=== PATIENT | female | born 2005 | race Two or more races ===

== ENCOUNTER → 2024-04-24 | Outpatient (REF) | payer OTHER ==
[2024-04-24 14:37] LABS: Trichomonas vaginalis (AMP) NOT DETECTED (NEGATIVE)
[2024-04-24 15:00] LABS: GC DNA AMPLIFICATION NEGATIVE (NEGATIVE)
== END ==
LOC: M SFHCWAGY 12:44
PROVIDERS: ATTEND Obstetrics & Gynecology
DX: Z34.01 Encounter for supervision of normal first pregnancy, first trimester (principal)

== ENCOUNTER → 2024-06-05 | Outpatient (CLI) | payer OTHER ==
[2024-06-05 13:37] LABS: HEMATOCRIT 34.4 % (36.0-47.0); HEMOGLOBIN 11.9 g/dl (12.0-15.5); MEAN CORPUSCULAR HEMOGLOBIN 29.9 pg (27.0-33.0); MEAN CORPUSCULAR HGB CONC 34.6 g/dl (32.0-36.5); MEAN CORPUSCULAR VOLUME 86.4 fl (80.0-96.0); PLATELET COUNT, AUTOMATED 263 10^3/uL (150-450); RED BLOOD COUNT 3.98 10^6/uL (4.00-5.40); WHITE BLOOD COUNT 7.9 10^3/uL (4.0-10.0)
[2024-06-05 14:21] LABS: HEPATITIS B SURFACE ANTIGEN NEGATIVE (NEGATIVE)
[2024-06-05 14:34] LABS: HIV 1&2 SCREEN NEGATIVE (NEGATIVE)
[2024-06-05 14:42] LABS: HEPATITIS C VIRUS ABY INDEX 0.03 INDEX (<0.8)
== END ==
LOC: M PLALAB 09:54
PROVIDERS: ATTEND Obstetrics & Gynecology
DX: Z34.01 Encounter for supervision of normal first pregnancy, first trimester (principal)

== ENCOUNTER → 2024-11-21 | Outpatient (CLI) | payer OTHER ==
[2024-11-21 15:50] LABS: PLATELET COUNT, AUTOMATED 306 10^3/uL (150-450)
[2024-11-21 16:41] LABS: Trichomonas vaginalis (AMP) NOT DETECTED (NEGATIVE)
[2024-11-21 17:04] LABS: HEPATITIS C VIRUS ABY INDEX < 0.02 INDEX (<0.8); HIV 1&2 SCREEN NEGATIVE (NEGATIVE)
[2024-11-21 17:05] LABS: GC DNA AMPLIFICATION NEGATIVE (NEGATIVE)
== END ==
LOC: M PLALAB 14:25
PROVIDERS: ATTEND Nurse Practitioner Family
DX: Z34.03 Encounter for supervision of normal first pregnancy, third trimester (principal); Z3A.00 Weeks of gestation of pregnancy not specified
CPT/HCPCS: 36415; 85027; 86780; 86803; 86850; 86900; 86901; 87081; 87389; 87661; 87810; 87850; J2790

== ENCOUNTER 2024-11-22 18:12 | Emergency (ER) | payer OTHER ==
[~2024-11-22] VITALS: Ht 170.2 cm; Wt 79.5 kg
[2024-11-22 20:00] VITALS: BP 142/79; TEMP 98.2; O2SAT 96
[2024-11-22 20:40] LABS: APPEARANCE, URINE CLOUDY (CLEAR); BACTERIA, URINE AUTO NEGATIVE (NEGATIVE); BILIRUBIN, URINE AUTO NEGATIVE (NEGATIVE); BLOOD, URINE BLOOD NEGATIVE (NEGATIVE); GLUCOSE, URINE (UA) AUTO NEGATIVE (NEGATIVE); KETONE, URINE AUTO TRACE mg/dL (NEGATIVE); LEUKOCYTE ESTERASE, URINE AUTO NEGATIVE (NEGATIVE); MUCUS, URINE LARGE (NEGATIVE); NITRITE, URINE AUTO NEGATIVE (NEGATIVE); PROTEIN, URINE AUTO 3+ mg/dL (NEGATIVE); RBC, URINE AUTO 1 /HPF (0-3); SPECIFIC GRAVITY URINE AUTO 1.029 (1.002-1.035); SQUAMOUS EPITHELIAL CELL UR AU 27 /HPF (0-6); UROBILINOGEN, URINE AUTO 2.0 mg/dL (0.0-2.0); WBC, URINE AUTO 2 /HPF (0-3)
[2024-11-22 21:58] LABS: BASO # 0.0 10^3/uL (0.0-0.2); BASO % 0.4 % (0.0-1.0); EOS # 0.2 10^3/uL (0.0-0.5); EOS % 2.2 % (0.0-3.0); LYMPH # 2.0 10^3/uL (1.5-5.0); LYMPH % 24.5 % (24.0-44.0); MONO # 0.7 10^3/uL (0.0-0.8); MONO % 7.9 % (2.0-8.0); NEUTROPHILS # 5.4 10^3/uL (1.5-8.5); NEUTROPHILS % 64.6 % (36.0-66.0); PLATELET COUNT, AUTOMATED 270 10^3/uL (150-450)
[2024-11-22 22:04] LABS: INR 0.95
[2024-11-22 22:10] LABS: ALT/SGPT 13 U/L (7.0-40); AST/SGOT 24 U/L (<34); CALCIUM LEVEL 8.8 MG/DL (8.5-10.1); CARBON DIOXIDE LEVEL 22 MMOL/L (20-31); CHLORIDE LEVEL 105 MMOL/L (98-107); CREATININE FOR GFR 0.64 MG/DL (0.55-1.30); GLOMERULAR FILTRATION RATE > 90.0 (>60); MAGNESIUM LEVEL 1.7 MG/DL (1.8-2.4); POTASSIUM SERUM 4.4 MMOL/L (3.5-5.1); SODIUM LEVEL 139 MMOL/L (136-145)
== END 2024-11-22 20:37 | disposition admitted as inpatient to this hospital (09) ==
LOC: M ED 18:12
DX: O14.90 Unspecified pre-eclampsia, unspecified trimester (principal); Z3A.39 39 weeks gestation of pregnancy

== ENCOUNTER 2024-11-22 20:31 | Inpatient (IN) | payer OTHER ==
[~2024-11-22] VITALS: Ht 170.2 cm; Wt 78.0 kg
[2024-11-22] VITALS (12 sets, daily range): BP systolic 132–170; BP diastolic 79–95
[2024-11-22] MEDS ORDERED: HOME MED LIST COMPLETE! XX SCH (20:50)
[2024-11-22 21:53] LABS: LDH LACTATE DEHYDROGENASE 196 U/L (120-246)
[2024-11-22 21:54] LABS: ALT/SGPT 12 U/L (7.0-40); AST/SGOT 24 U/L (<34); CREATININE FOR GFR 0.64 MG/DL (0.55-1.30); GLOMERULAR FILTRATION RATE > 90.0 (>60)
[2024-11-22] MEDS: FIORICET TAB PO ONE (21:58)
[2024-11-22] MEDS ORDERED: LIDOCAINE 1% MDV 20 ML VIAL INFIL PRN (22:20)
[2024-11-22] MEDS ORDERED: OXYTOCIN INJ 10UNITS/ML 1ML VIAL IM PRN (22:20)
[2024-11-22] MEDS ORDERED: CARBOPROST TROMETHAMINE 250 MCG/ML AMP IM PRN (22:20)
[2024-11-22] MEDS ORDERED: OXYTOCIN DRIP 30 UNITS in IV 1 EA IV PRN (22:20)
[2024-11-22 22:21] LABS: HIV 1&2 SCREEN NEGATIVE (NEGATIVE)
[2024-11-22 22:30] LABS: HEPATITIS C VIRUS ABY INDEX < 0.02 INDEX (<0.8)
[2024-11-22] MEDS: miSOPROStol 50 MCG 1/2 TABLET PO ONE (22:36)
[2024-11-23] VITALS (46 sets, daily range): BP systolic 109–184; BP diastolic 56–108; O2SAT 96–99
[2024-11-23 01:26] LABS: TOTAL PROTEIN,RANDOM URINE 243.9 MG/DL (0.0-14.0)
[2024-11-23] MEDS ORDERED: PEN G POT 3,000,000 UNIT/50 ML 3,000,000 UNIT in IV 1 EA IV SCH (02:20)
[2024-11-23] MEDS: miSOPROStol 50 MCG 1/2 TABLET PO ONE (02:43)
[2024-11-23] MEDS ORDERED: LABETALOL 100 MG/20 ML VIAL As Ordered ONE (05:18)
[2024-11-23] MEDS: LABETALOL 100 MG/20 ML VIAL IV STA ×2 (05:43→05:44)
[2024-11-23 06:21] LABS: PLATELET COUNT, AUTOMATED 272 10^3/uL (150-450)
[2024-11-23] MEDS ORDERED: diphenhydrAMINE 50 MG/ML VIAL IV PRN (06:40)
[2024-11-23] MEDS ORDERED: LR 500 ML IV PRN (06:40)
[2024-11-23] MEDS ORDERED: EPIDURAL/PCA KEYS XX PRN (06:40)
[2024-11-23] MEDS ORDERED: ONDANSETRON 4MG 2ML VIAL IV PRN (06:40)
[2024-11-23] MEDS ORDERED: NALOXONE INJ 0.4 MG/1 ML VIAL IV PRN (06:40)
[2024-11-23] MEDS ORDERED: FENTANYL 2 MCG/ML ROPIVACAINE 0.2% IN 0.9% NACL 100 ML IVBAG As Ordered ONE (06:50)
[2024-11-23] MEDS: FENTANYL/ROPIVACAINE/NACL BAG 100 ML EPIDURAL SCH (07:06)
[2024-11-23] MEDS: PENICILLIN G POTASSIUM 5 MU IV 5 MU in DEXTROSE 5% (D5W) MINI-BAG PLU 100 ML IV STA ×2 (08:12→19:34)
[2024-11-23] MEDS: OXYTOCIN DRIP 30 UNITS in IV 1 EA IV SCH ×2 (09:27→10:58)
[2024-11-23] MEDS: LR 1,000 ML IV SCH (09:27)
[2024-11-23] MEDS: TRANEXAMIC ACID INJection 1,000 MG in NS 100 ML IV PRN (11:17)
[2024-11-23] MEDS ORDERED: ACETAMINOPHEN 325 MG TAB PO PRN (11:20)
[2024-11-23] MEDS ORDERED: MOM 30 ML SUSPENSION UDC PO PRN (11:20)
[2024-11-23] MEDS ORDERED: IBUPROFEN 800 MG TAB PO PRN (11:20)
[2024-11-23] MEDS ORDERED: ANUSOL HC CREAM 30 GM TOP PRN (11:20)
[2024-11-23] MEDS ORDERED: CALCIUM CARBONATE 500 MG CHEW U/D PO PRN (11:20)
[2024-11-23] MEDS ORDERED: TRANEXAMIC ACID 100 MG/ML 10ML VIAL As Ordered ONE (11:28)
[2024-11-23] MEDS: ACETAMINOPHEN 500 MG TAB PO PRN (11:55)
[2024-11-23] MEDS: ONDANSETRON 4MG 2ML VIAL IV PRN (11:59)
[2024-11-23] MEDS: PEN G POT 3,000,000 UNIT/50 ML 3,000,000 UNIT in IV 1 EA IV SCH (12:00)
[2024-11-23] MEDS: DIBUCAINE 1% OINTMENT 30 GM TOP PRN (14:35)
[2024-11-23] MEDS: IBUPROFEN 600 MG TAB PO PRN (17:55)
[2024-11-24 06:00] VITALS: BP 129/72; O2SAT 97
[2024-11-24] MEDS: PRENATAL VITAMINS CHEWABLE TABLET PO SCH (08:41)
[2024-11-24 18:52] VITALS: BP 123/74; O2SAT 96
[2024-11-24] MEDS: MEASLES,MUMPS,RUBELLA VACCINE INJ (MMR-II) SC.IMMUN ONE (20:54)
[2024-11-24] MEDS: RHOGAM 300MCG (1500IU) INJ IM SCH (21:39)
[2024-11-25 06:00] VITALS: BP 142/83; O2SAT 98
[2024-11-25] MEDS: DOCUSATE SODIUM 100 MG CAPSULE PO PRN (08:59)
[2024-11-25] MEDS: TETANUS/DIPHTH/ACEL. PERTUSSIS 0.5 ML SYR IM ONE (11:33)
[2024-11-25] MEDS: FLUZONE VACCINE TRIVALENT PF(25-26) 0.5ML SYRINGE IM.IMMUN ONE (11:34)
== END 2024-11-25 12:30 | disposition home or self-care (01) | DRG 807 ==
LOC: M LDO 20:31 → M LDI 22:14 → M OBS 11-23 13:45
PROVIDERS: ADMIT Advanced Practice Midwife; ATTEND Obstetrics & Gynecology
PROC: 3E0P7GC Introduction of Other Therapeutic Substance into Female Reproductive, Via Natural or Artificial Opening (ICD-10-PCS; 2024-11-22)
PROC: 10E0XZZ Delivery of Products of Conception, External Approach (ICD-10-PCS; principal; 2024-11-23)
PROC: 0KQM0ZZ Repair Perineum Muscle, Open Approach (ICD-10-PCS; 2024-11-23)
DX: O13.4 Gestational [pregnancy-induced] hypertension without significant proteinuria, complicating childbirth (principal); Z37.0 Single live birth; Z3A.39 39 weeks gestation of pregnancy; O70.1 Second degree perineal laceration during delivery